=== PATIENT | male | born 2000 | race Caucasian/White ===

== ENCOUNTER → 2018-02-04 | Outpatient (CLI) | payer BC ==
--- NOTE | 2018-02-04 11:45 | XR ---
EXAMINATION TYPE: XR ribs bilat w pa chest xray DATE OF EXAM: 02/04/2018 COMPARISON: NONE HISTORY: Intermittent sternal and rib pain TECHNIQUE: Frontal view of the chest as well as frontal and oblique views of the ribs were obtained. FINDINGS: The lungs are clear without evidence of focal consolidation, pleural effusion or pneumothor ax. Cardiomediastinal silhouette is within normal limits. Osseous structures are intact. No callused healed rib fracture is seen nor acute displaced rib fracture. No suspicious osseous lesion is seen. IMPRESSION: No acute cardiopulmonary pathology, acute displaced rib fracture, callused healed rib fra cture or suspicious osseous lesion seen.
== END ==
LOC: RADXRYALE 11:09
PROVIDERS: ATTEND Internal Medicine
DX: S22.39XA Fracture of one rib, unspecified side, initial encounter for closed fracture (principal)
CPT/HCPCS: 71111

== ENCOUNTER → 2020-09-14 | Outpatient (CLI) | payer BC ==
--- NOTE | 2020-09-14 08:02 | MR ---
EXAMINATION TYPE: MR pituitary wo/w con DATE OF EXAM: 09/14/2020 COMPARISON: NONE HISTORY: Testicular hypofunction, Prolactin Increased TECHNIQUE: Multiplanar, multisequence images of the brain and brainstem is performed without and with IV contras t, utilizing 12 mL intravenous Gadavist . Pituitary gland protocol. FINDINGS: Pituitary gland normal in size within the pituitary stalk. Pituitary stalk shows normal enh ancement in the midline. Concave superior margin noted. Postcontrast images show some heterogeneous enhancement with suggestion on T2-weighted images of a 5 x 4 mm lesion left aspect of the gland coronal image 10 series 401. On T1 precontrast images there ar e some heterogeneous diminished signal at this level without definitive lesion. Postcontrast images s how some heterogeneous diminished enhancement at this level versus the opposite right side. Findings are concerning for focal pituitary microadenoma. I would expect complete nonenhancement to be more de finitive. Suprasellar cistern is maintained. Optic chiasm is not effaced. Visualized brain parenchyma unremarka ble. No hydrocephalus. Craniocervical junction preserved. IMPRESSION: As above. MRI findings suspicious for a 5 x 4 mm left-sided pituitary microadenoma.
== END ==
LOC: RADMRIMAIN 06:32
PROVIDERS: ATTEND Internal Medicine Endocrinology, Diabetes & Metabolism
DX: E29.1 Testicular hypofunction (principal); D35.2 Benign neoplasm of pituitary gland
CPT/HCPCS: 70553; A9585

== ENCOUNTER 2021-10-19 12:15 | Emergency (ER) | payer BC ==
[2021-10-19 12:46] VITALS: PULSE 87; TEMP 97.8
[2021-10-19] MEDS ORDERED: ONDANSETRON 4 MG/2 ML VIAL IVP STA (14:14)
[2021-10-19] MEDS ORDERED: METOCLOPRAMIDE 5 MG/ML 2 ML VIAL IVP STA (14:14)
[2021-10-19] MEDS ORDERED: SODIUM CHLORIDE 0.9% 1,000 ML IV STA (14:14)
--- NOTE | 2021-10-19 14:42 | XR ---
EXAMINATION TYPE: XR KUB DATE OF EXAM: 10/19/2021 COMPARISON: NONE HISTORY: Vomiting and fever TECHNIQUE: 2 views upright FINDINGS: There is no sign of intestinal obstruction or pneumoperitoneum. Fecal pattern is normal. No evidence of a mass. Lung bases are clear. There are no pathologic calcifications. IMPRESSION: Nonacute abdomen.
[2021-10-19 15:09] LABS: Basophils # (A) 0.1 k/uL (0-0.2); Basophils % (A) 1 %; Eosinophils # (A) 0.2 k/uL (0-0.7); Eosinophils % (A) 3 %; HGB 15.5 gm/dL (13.0-17.5); Lymphocytes # (A) 1.3 k/uL (1.0-4.8); Lymphocytes % (A) 16 %; MCH 28.8 pg (25.0-35.0); MCHC 33.7 g/dL (31.0-37.0); MCV 85.3 fL (80.0-100.0); Mean Platelet Volume 6.8; Monocytes # (A) 0.6 k/uL (0-1.0); Monocytes % (A) 8 %; Neutrophils # (A) 5.8 k/uL (1.3-7.7); Neutrophils % (A) 71 %; Platelet Count 302 k/uL (150-450); RBC 5.39 m/uL (4.30-5.90); RDW 12.7 % (11.5-15.5); WBC 8.1 k/uL (3.8-10.6)
[2021-10-19 15:17] LABS: ALT 80 U/L (4-49); AST 29 U/L (17-59); African American GFR (CKD) >90 (>60 ml/min/1.73 sqM); Alkaline Phosphatase 56 U/L (38-126); Amylase 59 U/L (30-110); Anion Gap 7 mmol/L; Blood Urea Nitrogen 12 mg/dL (9-20); Calcium 8.9 mg/dL (8.4-10.2); Carbon Dioxide 27 mmol/L (22-30); Chloride 106 mmol/L (98-107); Glucose 104 mg/dL (74-99); Lipase 155 U/L (23-300); Non-African American GFR(CKD) >90 (>60 ml/min/1.73 sqM); Potassium 3.7 mmol/L (3.5-5.1); Sodium 140 mmol/L (137-145); Total Bilirubin 0.4 mg/dL (0.2-1.3)
[2021-10-19] MEDS ORDERED: DILTIAZEM 5 MG/ML 5 ML VIAL IVP STA (16:02)
[2021-10-19] MEDS ORDERED: ADENOSINE 3 MG/ML 2 ML VIAL IVP STA ×3 (16:02)
[2021-10-19 16:03] LABS: Appearance,Urine Clear (Clear); Bilirubin,Urine Negative (Negative); Blood,Urine Negative (Negative); Color,Urine Yellow; Glucose,Urine (UA) Negative (Negative); Ketones,Urine Negative (Negative); Leukocyte Esterase,Urine Negative (Negative); Nitrite,Urine Negative (Negative); PH, Urine 5.5 (5.0-8.0); Protein,Urine Trace (Negative); Specific Gravity,Urine 1.027 (1.001-1.035); Urobilinogen,Urine <2.0 mg/dL (<2.0)
--- NOTE | 2021-10-19 16:14 | ED ---
Nausea/Vomiting/Diarrhea HPI - General Chief complaint: Nausea/Vomiting/Diarrhea Stated complaint: vomiting, fever Time Seen by Provider: 10/19/21 13:50 Source: patient Mode of arrival: ambulatory Limitations: no limitations - History of Present Illness Initial comments: Patient is a 21-year-old male presenting with chief complaint of nausea, vomiting, diarrhea. Patient states that this has been going on for several weeks. It is intermittent, patient does not notice any patterns related to his symptoms. No sick contacts or recent travel. Denies abdominal pain, chest pain, shortness of breath, fever, chills, hematochezia, hematemesis, weakness, headache, vision or hearing changes, numbness, tingling, URI-like symptoms. - Related Data Home Medications Medication Instructions Recorded Confirmed ARIPiprazole [Abilify] 5 mg PO HS 10/19/21 10/19/21 Escitalopram [Lexapro] 20 mg PO HS 10/19/21 10/19/21 tadalafiL 5 mg PO DAILY PRN 10/19/21 10/19/21 Allergies Allergy/AdvReac Type Severity Reaction Status Date / Time No Known Allergies Allergy Verified 10/19/21 16:56 Review of Systems ROS Statement: Those systems with pertinent positive or pertinent negative responses have been documented in the HPI. ROS Other: All systems not noted in ROS Statement are negative. Past Medical History Past Medical History: No Reported History History of Any Multi-Drug Resistant Organisms: None Reported Past Surgical History: Hernia Repair Past Psychological History: No Psychological Hx Reported Smoking Status: Current every day smoker Past Alcohol Use History: None Reported Past Drug Use History: None Reported General Exam Limitations: no limitations General appearance: alert, in no apparent distress Head exam: Present: atraumatic, normocephalic, normal inspection Eye exam: Present: normal appearance, EOMI. Absent: scleral icterus Neck exam: Present: normal inspection Respiratory exam: Present: normal lung sounds bilaterally. Absent: respiratory distress, wheezes, rales, rhonchi, stridor Cardiovascular Exam: Present: regular rate, normal rhythm, normal heart sounds. Absent: systolic murmur, diastolic murmur, rubs, gallop, clicks GI/Abdominal exam: Present: soft, normal bowel sounds. Absent: distended, tenderness, guarding, rebound, rigid Neurological exam: Present: alert, oriented X3, CN II-XII intact Psychiatric exam: Present: normal affect, normal mood Skin exam: Present: warm, dry, intact, normal color. Absent: rash Course Vital Signs 10/19/21 10/19/21 12:44 17:05 Temperature 97.8 F Pulse Rate 87 87 Respiratory 16 87 H Rate Blood Pressure 143/86 125/85 O2 Sat by Pulse 97 100 Oximetry Medical Decision Making - Medical Decision Making Patient is a 21-year-old male presenting with chief complaint of nausea and vomiting. It has been occurring intermittently throughout the last several weeks. Is accompanied by diarrhea. Patient denies any abdominal pain, hematochezia, hematemesis. On exam normal bowel sounds in all 4 quadrants, no tenderness on palpation. Patient was given Reglan and IV fluids. Lab work is only remarkable for slightly elevated ALT of 80. KUB x-ray indicates a nonacute abdomen. On reassessment patient states he is feeling much better. He is able to keep down oral fluids and crackers. Patient appears stable for discharge with outpatient follow-up at this time. Follow-up with PCP this week. Report back to ER if any worsening symptoms. I educated the patient on return parameters and answered all questions. Patient conveyed verbal understanding and agreed to the plan. I discussed this case with my attending Dr. Webb. - Lab Data Result diagrams: 10/19/21 14:53 10/19/21 14:53 Lab Results 10/19/21 10/19/21 10/19/21 Range/Units 14:53 14:53 14:53 WBC 8.1 (3.8-10.6) k/uL RBC 5.39 (4.30-5.90) m/uL Hgb 15.5 (13.0-17.5) gm/dL Hct 46.0 (39.0-53.0) % MCV 85.3 (80.0-100.0) fL MCH 28.8 (25.0-35.0) pg MCHC 33.7 (31.0-37.0) g/dL RDW 12.7 (11.5-15.5) % Plt Count 302 (150-450) k/uL MPV 6.8 Neutrophils % 71 % Lymphocytes % 16 % Monocytes % 8 % Eosinophils % 3 % Basophils % 1 % Neutrophils # 5.8 (1.3-7.7) k/uL Lymphocytes # 1.3 (1.0-4.8) k/uL Monocytes # 0.6 (0-1.0) k/uL Eosinophils # 0.2 (0-0.7) k/uL Basophils # 0.1 (0-0.2) k/uL Sodium 140 (137-145) mmol/L Potassium 3.7 (3.5-5.1) mmol/L Chloride 106 (98-107) mmol/L Carbon Dioxide 27 (22-30) mmol/L Anion Gap 7 mmol/L BUN 12 (9-20) mg/dL Creatinine 0.82 (0.66-1.25) mg/dL Est GFR (CKD-EPI)AfAm >90 (>60 ml/min/1.73 sqM) Est GFR (CKD-EPI)NonAf >90 (>60 ml/min/1.73 sqM) Glucose 104 H (74-99) mg/dL Calcium 8.9 (8.4-10.2) mg/dL Total Bilirubin 0.4 (0.2-1.3) mg/dL AST 29 (17-59) U/L ALT 80 H (4-49) U/L Alkaline Phosphatase 56 (38-126) U/L Total Protein 7.0 (6.3-8.2) g/dL Albumin 4.0 (3.5-5.0) g/dL Amylase 59 (30-110) U/L Lipase 155 (23-300) U/L Urine Color Yellow Urine Appearance Clear (Clear) Urine pH 5.5 (5.0-8.0) Ur Specific [place] 1.027 (1.001-1.035) Urine Protein Trace H (Negative) Urine Glucose (UA) Negative (Negative) Urine Ketones Negative (Negative) Urine Blood Negative (Negative) Urine Nitrite Negative (Negative) Urine Bilirubin Negative (Negative) Urine Urobilinogen <2.0 (<2.0) mg/dL Ur Leukocyte Esterase Negative (Negative) - Radiology Data Radiology results: report reviewed, image reviewed Abdominal x-ray: Nonacute abdomen Disposition Clinical Impression: Nausea and vomiting Disposition: HOME SELF-CARE Condition: Good Instructions (If sedation given, give patient instructions): Acute Nausea and Vomiting (ED), Acute Diarrhea (ED) Additional Instructions: Follow-up with primary care this week. Report back to ER with any worsening symptoms, including but not limited to increased vomiting, abdominal pain, chest pain, shortness of breath, fever, chills. Is patient prescribed a controlled substance at d/c from ED?: No Referrals: Tommy Jean MD [Primary Care Provider] - 1-2 days Time of Disposition: 16:56
[2021-10-19] MEDS ORDERED: DILTIAZEM 125 MG in SODIUM CHLORIDE 0.9% 100 ML IV SCH (16:15)
[2021-10-19 17:06] VITALS: BP 125/85; RESP 87
== END 2021-10-19 17:06 | disposition home or self-care (01) ==
LOC: EC 12:15
DX: R11.2 Nausea with vomiting, unspecified (principal); R19.7 Diarrhea, unspecified; R74.01 Elevation of levels of liver transaminase levels; F17.200 Nicotine dependence, unspecified, uncomplicated
CPT/HCPCS: 36415; 80053; 82150; 83690; 85025; 81003; 74018; 99284; 96374; 96361; J2765